=== PATIENT | female | born 1960 | race Asian ===

== ENCOUNTER 2021-01-04 20:30 | Emergency (ER) | payer OTHER ==
[~2021-01-04] VITALS: Ht 157.5 cm; Wt 55.8 kg
[2021-01-04 20:35] VITALS: BP 127/60
--- NOTE | 2021-01-04 20:38 | NUR ---
TO LOBBY A/W BED AMBULATORY
--- NOTE | 2021-01-04 21:10 | NUR ---
PATIENT TAKEN TO BED 4, AMBULATORY WITH STEADY GAIT.
--- NOTE | 2021-01-04 21:20 | NUR ---
RECEIVED IN BED 4 WITH C/O DOG BITE RLE. 2 PUNCTURE WOUNDS NOTED RLE BELOW KNEE. PT DOES NOT KNOW THE FURNISHINGS CONSERVATOR OR BREED OF THE DOG
[2021-01-04] MEDS ORDERED: AMOX-1000 PO (21:44)
== END 2021-01-04 22:05 | disposition home or self-care (01) ==
LOC: MED 20:30
DX: S81.851A Open bite, right lower leg, initial encounter (principal); W54.0XXA Bitten by dog, initial encounter; Y93.89 Activity, other specified; Y92.89 Other specified places as the place of occurrence of the external cause; Y99.8 Other external cause status
CPT/HCPCS: 90471; 90715; 99283